=== PATIENT | male | born 1990 | race Caucasian/White ===

== ENCOUNTER 2017-02-27 21:01 | Emergency (ER) | payer MEDICAID ==
[~2017-02-27] VITALS: Ht 162.6 cm; Wt 74.8 kg
[2017-02-27 21:06] VITALS: Ht 162.6 cm; Wt 74.8 kg
--- NOTE | 2017-02-27 21:40 | ERD ---
ER Documentation Chief Complaint Chief Complaint palpitations 40 mins ago HPI This patient is a 27-year-old otherwise healthy male who presents complaining of having an episode about 40 minutes before arriving to the emergency room where he felt short of breath got paresthesias in his bilateral upper extremities as well as around his lip. Denies any chest pain. Does state he smokes cigarettes currently but denies any drug use. No trauma. No fever. He states "I feel very nervous." ROS All systems reviewed and are negative except as per history of present illness. Medications Home Meds Active Scripts Lorazepam* (Lorazepam*) 1 Mg Tablet, 1 MG PO Q8, #10 TAB Prov:MICHAEL GIFFORD PA-C 02/27/17 Allergies Allergies: Coded Allergies: No Known Allergy (Unverified , 02/27/17) PMhx/Soc History of Surgery: No Anesthesia Reaction: No Hx Neurological Disorder: No Hx Respiratory Disorders: No Hx Cardiac Disorders: No Hx Psychiatric Problems: No Hx Miscellaneous Medical Probl: No Hx Alcohol Use: No Hx Substance Use: No Hx Tobacco Use: No Smoking Status: Never smoker FmHx Family History: No diabetes Physical Exam Vitals Vital Signs Date Time Temp Pulse Resp B/P Pulse Ox O2 Delivery O2 Flow Rate FiO2 02/27/17 21:06 99.2 105 22 171/93 100 Physical Exam INITIAL VITAL SIGNS: Reviewed by me GENERAL: Awake, alert and oriented x 4, well appearing, nontoxic, speaking in full sentences. Anxious and tearful HEAD: Atraumatic NECK: Supple. No masses. Full range of motion. No meningismus. No midline tenderness. EYES: EOMI. PERRL. RESPIRATORY: Clear to auscultation bilaterally. Symmetric chest wall rise. No wheezing or rales. No accessory muscle use. CV: Regular rate and rhythm. No murmurs, rubs, or gallops. EXTREMITIES: No clubbing or cyanosis. No edema. Moving all extremities normally. Results 24 hrs Current Medications Medications (Trade) Dose Ordered Sig/Carlos Enrique Route PRN Reason Start Time Stop Time Status Last Admin Dose Admin Lorazepam (Ativan) 1 mg ONCE ONCE PO 02/27/17 22:00 02/27/17 22:01 DC 02/27/17 21:44 Procedures/MDM Patient presents complaining of an episode of palpitations. He does appear very anxious and is tearful on examination room and states "I feel nervous." EKG is normal sinus rhythm with no evidence of ST elevation or acute ischemic changes. He was given Ativan with improvement of his symptoms and discharged with Ativan. Patient counseled regarding my diagnostic impression and care plan. Prior to discharge all questions answered. Pt agrees with treatment plan and understands strict return precautions. Pt is instructed to follow up with primary care provider within 24-48 hours. Precautionary instructions provided including instructions to return to the ER if not improving or for any worsening or changing symptoms or concerns. Departure Diagnosis: Primary Impression: Anxiety Condition: Stable MICHAEL GIFFORD PA-C Feb 27, 2017 21:40
[2017-02-27] MEDS ORDERED: LORA1TAB PO (21:41)
[2017-02-27] MEDS ORDERED: LORAZEPAM 1 MG TAB PO ONE (22:00)
[2017-02-27 22:36] VITALS: BP 135/70; PULSE 95; RESP 16
== END 2017-02-27 22:35 | disposition home or self-care (01) ==
LOC: FTE 21:01
DX: F41.9 Anxiety disorder, unspecified (principal)
CPT/HCPCS: 93005; Z7502; Z7610

== ENCOUNTER 2017-07-09 17:03 | Emergency (ER) | END 2017-07-09 20:17 | disposition home or self-care (01) ==